=== PATIENT | male | born 1960 | race Caucasian/White ===

== ENCOUNTER → 2017-08-14 | Outpatient (CLI) | payer BC ==
--- NOTE | 2017-08-14 17:32 | CONS ---
CONSULTATION DATE OF SERVICE: 08/14/2017 57-year-old gentleman has been evaluated in [facility] for possible obstructive sleep apnea-hypopnea syndrome. HISTORY OF PRESENT ILLNESS/SLEEP WAKE EVALUATION: SLEEP SCHEDULE: Patient usual sleep schedule on working days from 9:30 p.m. to 6:30 a.m. On weekends from 10 p.m. to 7 a.m. FALLING ASLEEP: Usually no problem with falling asleep. No TV in bedroom. DURING SLEEP: The patient sleeps on the side position usually with his with loud snoring, witnessed episodes of stopped breathing during the sleep. DURING THE DAY/SLEEP WAKE EVALUATION: Patient wakes up from sleep with a dry mouth and nocturia 1-2 times. In the morning, wakes up tired, may feel sleepy during the day. Plessis Sleepiness Scale increased to 10. PAST MEDICAL HISTORY: Positive for hypertension, diabetes, hyperlipidemia. PAST SURGICAL HISTORY: Bilateral knee surgery. MEDICATIONS: Lipitor, Januvia, Zestoretic, Lopid, Amaryl. SOCIAL HISTORY: Negative for smoking. Alcohol consumption rarely. FAMILY HISTORY: Hypertension, hyperlipidemia, epilepsy, diabetes. REVIEW OF SYMPTOMS: Awakenings from sleep, snoring, sleepiness during the day. PHYSICAL EXAM: gentleman without distress. BP 116/68, HR 80, RR 16, height 6 feet 3 inches, weight 292, BMI 36.4. Neck 18-1/2 inches in circumference. Temperature 97.4. Oxygen saturation room air 95%. Oropharynx extremely low position of soft palate. Some asymmetry of the nose, slight restriction of nasal breathing, possible nasal septum deviation. Wide neck, 18.5 Inches in circumference. Abdomen slightly obese. Neck Supple, no JVD. Thyroid is not palpable. LUNGS Clear to percussion and to auscultation. Good air exchange. No wheezing or rhonchi. HEART S1, S2 regular. No murmurs, gallops, or rubs. ABDOMEN: Obese. Soft and nontender. Bowel sounds are present. No organomegaly appreciated. EXTREMITIES No clubbing or cyanosis. [employer]IC Awake, alert, and oriented X3. Cranial nerves 2 to 7 intact. There is no fasciculation or atrophy. noted. No focal deficits observed. IMPRESSION: 1. Snoring, witnessed episodes of stopped breathing during sleep, extremely low position of soft palate, wide neck, sleepiness. Plessis Sleepiness Scale increased to 10. Obstructive sleep apnea-hypopnea syndrome. 2. Obesity BMI 36.4. 3. Hypertension. 4. Diabetes mellitus. 5. Hyperlipidemia. 6. Status post bilateral knee surgery. 7. Some asymmetry of the nose, possible nasal septum deviation. PLAN: 1. Home sleep apnea test. 2. Polysomnography for evaluation of patient's breathing during sleep. 3. CPAP/BiPAP titration if sleep study confirms obstructive sleep apnea-hypopnea syndrome. 4. Preferable position during sleep on the side. 5. No driving if patient feels any sleepiness. Patient is aware of civil and criminal liability for unsafe driving. 6. I will see patient for follow up visit to explain results of testing and following plan. Thank you very much for this patient for consultation. Sincerely, Nigel Salas MD, PhD, FAASM Diplomat of [employer] [place] Teacher of [facility] [place] MMODL / JERSEYN: [id number] /
== END | disposition home or self-care (01) ==
LOC: SLEEP 15:18
PROVIDERS: ATTEND Internal Medicine
DX: G47.33 Obstructive sleep apnea (adult) (pediatric) (principal); I10 Essential (primary) hypertension; E11.9 Type 2 diabetes mellitus without complications; E78.5 Hyperlipidemia, unspecified; E66.9 Obesity, unspecified; J34.89 Other specified disorders of nose and nasal sinuses; Z98.890 Other specified postprocedural states; Z79.84 Long term (current) use of oral hypoglycemic drugs; Z68.36 Body mass index [BMI] 36.0-36.9, adult
CPT/HCPCS: 99211

== ENCOUNTER → 2017-11-06 | Outpatient (CLI) | payer BC ==
--- NOTE | 2017-11-06 12:42 | PN ---
PROGRESS NOTE DATE OF SERVICE: 11/06/2017 57-year-old gentleman has been followed in the Sleep Center for treatment of obstructive sleep apnea-hypopnea syndrome. Recently patient has been diagnosed with severe obstructive sleep apnea by results of home sleep apnea test and then had CPAP titration in the office. I explained results of the sleep studies to patient in details. He was started on treatment with CPAP and today is his first visit to the office with his CPAP unit. The patient reports that he is able to use CPAP equipment every night for the whole night. Sleeps better with that and feels better during the day. Eldridge Sleepiness Scale is 8. The patient feels slightly difficulties when he is starting to use his CPAP because the pressure is too low and he may feel it is not enough air. I checked his CPAP unit. Usage is 100% of the time more than 4 hours. Average usage is 8 hours. CPAP pressure 13 cm of water. Leak is 22 L/minute, which is acceptable. Apnea-hypopnea index is only 0.8, which is perfect. REM started from 4 cm of water and 30 minutes. MEDICATIONS: Lipitor, Januvia, Zestoretic, Amaryl, Lopid. PHYSICAL EXAM: GENERAL gentleman without distress. VITAL SIGNS BP 112/66, HR 78, RR 16, weight 301, temp 98.4, O2 saturation room air 95%. HEENT PERRLA, EOMI, evaluation of oropharynx showed low position of soft palate. NECK Supple, no JVD. Thyroid is not palpable. LUNGS Clear to percussion and to auscultation. Good air exchange. No wheezing or rhonchi. HEART S1, S2 regular. No murmurs, gallops, or rubs. ABDOMEN Slightly obese. Soft and nontender. Bowel sounds are present. No organomegaly appreciated. EXTREMITIES No clubbing or cyanosis. [employer] Awake, alert, and oriented X3. Cranial nerves 2 to 7 intact. There is no fasciculation or atrophy. noted. No focal deficits observed. IMPRESSION: 1. Severe obstructive sleep apnea-hypopnea syndrome; apnea-hypopnea index 57.7 with oxygen desaturation to 72% on full control with CPAP at 13 cm of water patient demonstrated 100% compliance with treatment benefitting from treatment. 2. Hypertension. 3. Obesity. 4. Diabetes mellitus. 5. Hyperlipidemia. 6. Status post bilateral knee surgery. 7. Possible nasal septum deviation. PLAN: 1. Continue treatment with CPAP every night for the whole night. 2. Watching and losing weight. 3. Sleep hygiene with regular time bed for at least 8 hours. 4. No driving if feeling sleepiness. 5. Follow-up visit in 10 months or earlier if patient has any problems. Thank you very much for allowing me to participate in management of your patient. Sincerely, Nigel Salas MD, PhD, FAASM Diplomat of [employer] [employer] Reconstructive Surgeon of [facility] [place] MMODL / JERSEYN: [id number] /
== END | disposition home or self-care (01) ==
LOC: SLEEP 11:12
PROVIDERS: ATTEND Internal Medicine
DX: G47.33 Obstructive sleep apnea (adult) (pediatric) (principal); I10 Essential (primary) hypertension; E66.9 Obesity, unspecified; E11.9 Type 2 diabetes mellitus without complications; E78.5 Hyperlipidemia, unspecified; Z98.890 Other specified postprocedural states; Z99.89 Dependence on other enabling machines and devices